=== PATIENT | female | born 1965 | race Caucasian/White ===

== ENCOUNTER → 2016-11-18 | Day surgery (SDC) | payer OTHER ==
[~2016-11-18] VITALS: Ht 157.5 cm; Wt 134.3 kg
[~2016-11-18] MED LIST: ACET65TA; ALLE25CA; ESTROGEN; LIOT25TA2 PO; LR 1,000 ML IV SCH; MAGN500T5 PO; MIDAZOLAM INJ 2 MG/2 ML VIAL (J2250) As Ordered ONE; NALT50TA4 PO; NATURE THYROID PO; PRED10TA2; PROG100C PO; PROPOFOL 200 MG/20 ML VIAL As Ordered ONE; SEVOFLURANE INHAL SOLN 250 ML BTL As Ordered ONE; TESTPOW5 PO; THYR; [UNRECOGNIZED DRUG - OTHER]; [UNRECOGNIZED DRUG - OTHER]; diphenhydrAMINE INJ 50MG/ML VIAL (J1200) As Ordered ONE
--- NOTE | 2016-11-18 08:07 | ROOR ---
Patient Name: Brie Marrero Procedure Date: 11/18/2016 6:33 AM Date of : 1965 Age: 51 Gender: Female Note Status: Finalized Procedure: Colonoscopy to Cecum Indications: Colon cancer screening in patient at increased risk: Colorectal cancer in mother, Incidental - Change in bowel habits Providers: Faisal Francis MD Referring MD: REYNALDO DONOVAN DO Requesting Provider: Medicines: Monitored Anesthesia Care Complications: No immediate complications. Procedure: Pre-Anesthesia Assessment: - The heart rate, respiratory rate, oxygen saturations, blood pressure, adequacy of pulmonary ventilation, and response to care were monitored throughout the procedure. The Colonoscope was introduced through the anus and advanced to the cecum, identified by appendiceal orifice and ileocecal valve. The colonoscopy was performed without difficulty. The patient tolerated the procedure well. The quality of the bowel preparation was excellent. Findings: The perianal and digital rectal examinations were normal. No other significant abnormalities were identified in a careful examination of the remainder of the colon. The exam was otherwise without abnormality on direct and retroflexion views. Impression: - The examination was otherwise normal on direct and retroflexion views. - No specimens collected. - The exam was otherwise normal to the cecum. Recommendation: - Patient has a contact number available for emergencies. The signs and symptoms of potential delayed complications were discussed with the patient. Return to normal activities tomorrow. Written discharge instructions were provided to the patient. - High fiber diet. - Discharge patient to home. - Continue present medications. - Repeat colonoscopy in 5 years for screening purposes. - Return to referring physician. - The findings and recommendations were discussed with the patient's family. Faisal Francis MD Faisal Francis MD 11/18/2016 8:07:28 AM This report has been signed electronically. Number of Addenda: 0 Note Initiated On: 11/18/2016 6:33 AM Estimated Blood Loss: Estimated blood loss: none.
--- NOTE | 2016-11-18 08:11 | ROOR ---
Patient Name: Brie Marrero Procedure Date: 11/18/2016 7:54 AM Date of : 1965 Age: 51 Gender: Female Note Status: Finalized Procedure: Upper GI endoscopy + Small Bowel Biopsy(SBB) Indications: Functional Dyspepsia, Exclusion of celiac disease, Abdominal distention Providers: Faisal Francis MD Referring MD: REYNALDO DONOVAN DO Requesting Provider: Medicines: Monitored Anesthesia Care Complications: No immediate complications. Procedure: Pre-Anesthesia Assessment: - The heart rate, respiratory rate, oxygen saturations, blood pressure, adequacy of pulmonary ventilation, and response to care were monitored throughout the procedure. The Endoscope was introduced through the mouth, and advanced to the second part of duodenum. The upper GI endoscopy was accomplished without difficulty. The patient tolerated the procedure well. Findings: The Z-line was regular and was found 40 cm from the incisors. No other significant abnormalities were identified in a careful examination of the stomach. The exam of the duodenum was otherwise normal. Biopsies for histology were taken with a cold forceps in the first portion of the duodenum for evaluation of celiac disease. The exam was otherwise without abnormality. Impression: - Z-line regular, 40 cm from the incisors. - The examination was otherwise normal. - Biopsies were taken with a cold forceps for evaluation of celiac disease. - The examination was otherwise normal. Recommendation: - Patient has a contact number available for emergencies. The signs and symptoms of potential delayed complications were discussed with the patient. Return to normal activities tomorrow. Written discharge instructions were provided to the patient. - High fiber diet. - Discharge patient to home. - Continue present medications. - Telephone GI clinic for pathology results in 1 week. - Check Portal Online for Path Results.([email or web address] - The findings and recommendations were discussed with the patient's family. Faisal Francis MD Faisal Francis MD 11/18/2016 8:11:23 AM This report has been signed electronically. Number of Addenda: 0 Note Initiated On: 11/18/2016 7:54 AM Estimated Blood Loss: Estimated blood loss: none.
[2016-11-18 09:30] VITALS: BP 153/94
== END | disposition home or self-care (01) ==
LOC: M SDC 06:12
PROVIDERS: ATTEND Internal Medicine Gastroenterology
DX: Z12.11 Encounter for screening for malignant neoplasm of colon (principal); Z80.0 Family history of malignant neoplasm of digestive organs; K30 Functional dyspepsia; R14.0 Abdominal distension (gaseous); E03.9 Hypothyroidism, unspecified; G47.30 Sleep apnea, unspecified; Z91.040 Latex allergy status; E66.01 Morbid (severe) obesity due to excess calories; Z79.899 Other long term (current) drug therapy; Z88.0 Allergy status to penicillin; Z88.2 Allergy status to sulfonamides; Z88.8 Allergy status to other drugs, medicaments and biological substances
CPT/HCPCS: 43239; 45378; 88305; J1200; J2250

== ENCOUNTER → 2016-12-23 | Outpatient (CLI) | payer OTHER ==
[~2016-12-23] MED LIST changes: -LR 1,000 ML IV SCH; -MIDAZOLAM INJ 2 MG/2 ML VIAL (J2250) As Ordered ONE; -PROPOFOL 200 MG/20 ML VIAL As Ordered ONE; -SEVOFLURANE INHAL SOLN 250 ML BTL As Ordered ONE; -diphenhydrAMINE INJ 50MG/ML VIAL (J1200) As Ordered ONE
--- NOTE | 2016-12-23 22:33 | REP ---
Clinical: Trauma. Sprain. Technique: AP, lateral, bilateral oblique views of the right ankle. Findings: Lateral soft tissue swelling consistent with inversion injury. No acute fracture dislocation. Ankle mortise intact. Degenerative changes to the midfoot noted. Lateral view demonstrates large calcaneal heal spur. Impression: Lateral soft tissue swelling. Age-related degenerative changes and calcaneal heal spur. No obvious acute fracture or dislocation. Signed by Cj Lucio MD 12/23/2016 10:24 P
--- NOTE | 2016-12-23 22:34 | REP ---
Clinical: Sprain. Technique: AP, lateral, bilateral oblique views of the right foot. Findings: Ankle and midfoot swelling suggested. Degenerative changes to the mid and hind foot noted. Large calcaneal heal spur identified on lateral radiograph. No acute fracture dislocation appreciated. Impression: Swelling. Degenerative changes to the mid and hind foot. No acute fracture dislocation. Signed by Cj Lucio MD 12/23/2016 10:25 P
== END ==
LOC: M WUC 14:58
PROVIDERS: ATTEND Physician Assistant
DX: S93.421A Sprain of deltoid ligament of right ankle, initial encounter (principal); M79.671 Pain in right foot; X58.XXXA Exposure to other specified factors, initial encounter; Y93.9 Activity, unspecified; Y92.9 Unspecified place or not applicable; Y99.8 Other external cause status; M77.31 Calcaneal spur, right foot

== ENCOUNTER → 2017-02-18 | Outpatient (CLI) | payer OTHER ==
[~2017-02-18] MED LIST changes: +HYDR1CRE TOP
[2017-02-18 17:43] LABS: ALBUMIN 3.5 GM/DL (3.2-5.2); ALBUMIN/GLOBULIN RATIO 1.03 (1.00-1.93); ALKALINE PHOSPHATASE 58 U/L (45-117); ALT/SGPT 37 U/L (12-78); ANION GAP 9 MEQ/L (8-16); AST/SGOT 26 U/L (15-37); BILIRUBIN,TOTAL 0.5 MG/DL (0.2-1.0); BLOOD UREA NITROGEN 10 MG/DL (7-18); CALCIUM LEVEL 8.9 MG/DL (8.5-10.1); CARBON DIOXIDE LEVEL 28 MEQ/L (21-32); CHLORIDE LEVEL 101 MEQ/L (98-107); CREATININE FOR GFR 0.67 MG/DL (0.55-1.02); FERRITIN 376 NG/ML (8-252); GLOMERULAR FILTRATION RATE > 60.0 (>51); GLUCOSE, FASTING 82 MG/DL (70-105); POTASSIUM SERUM 4.5 MEQ/L (3.5-5.1); SODIUM LEVEL 138 MEQ/L (136-145); THYROXINE (T4) 6.2 UG/DL (4.5-12.0); TOTAL PROTEIN 6.9 GM/DL (6.4-8.2)
[2017-02-18 17:46] LABS: ESTRADIOL 50.2 PG/ML; PROGESTERONE 2.9 NG/ML
[2017-02-18 17:47] LABS: VITAMIN B12 LEVEL 353 PG/ML
[2017-02-18 17:49] LABS: BASO % 0.4 % (0.0-1.0); EOS # 0.2 K/mm3 (0.0-0.50); EOS % 3.1 % (0.0-3.0); LARGE UNSTAINED CELL # 0.1 K/mm3 (0.0-0.4); LARGE UNSTAINED CELL % 1.3 % (0.0-4.0); LYMPH # 2.3 K/mm3 (1.5-4.5); MEAN CORPUSCULAR HEMOGLOBIN 30.2 pg (27.0-33.0); MEAN CORPUSCULAR HGB CONC 34.5 g/dl (32.0-36.5); MEAN CORPUSCULAR VOLUME 87.6 fl (80.0-96.0); MONO # 0.3 K/mm3 (0.0-0.8); MONO % 4.3 % (0.0-5.0); NEUTROPHILS # 3.4 K/mm3 (1.8-7.7); NEUTROPHILS % 54.9 % (36.0-66.0); PLATELET COUNT, AUTOMATED 199 k/mm3 (150-450); RED CELL DISTRIBUTION WIDTH 14.1 % (11.5-14.5); WHITE BLOOD COUNT 6.1 K/mm3 (4.0-10.0)
[2017-02-24 00:07] LABS: LEPTIN 56.7 ng/mL (.)
== END ==
LOC: M WUC 11:41
PROVIDERS: ATTEND Physician Assistant
DX: E66.3 Overweight (principal); E63.9 Nutritional deficiency, unspecified; E03.9 Hypothyroidism, unspecified; N95.1 Menopausal and female climacteric states; E27.40 Unspecified adrenocortical insufficiency

== ENCOUNTER 2017-02-27 15:42 | Emergency (ER) | payer OTHER ==
[~2017-02-27] VITALS: Ht 157.5 cm; Wt 133.6 kg
[~2017-02-27 15:42] MED LIST changes: -HYDR1CRE TOP
[2017-02-27] MEDS ORDERED: HYDR1CRE TOP (16:01)
[2017-02-27] MEDS ORDERED: ONDANSETRON 4MG/2ML VIAL (J2405) IV ONE (18:15)
[2017-02-27] MEDS ORDERED: KETOROLAC 30 MG/ML VIAL (J1885) IV ONE (18:15)
[2017-02-27] MEDS ORDERED: diphenhydrAMINE INJ 50MG/ML VIAL (J1200) IV ONE (18:30)
[2017-02-27 18:38] LABS: BASO % 0.4 % (0.0-1.0); EOS # 0.2 K/mm3 (0.0-0.50); EOS % 2.5 % (0.0-3.0); LARGE UNSTAINED CELL # 0.1 K/mm3 (0.0-0.4); LARGE UNSTAINED CELL % 1.3 % (0.0-4.0); LYMPH # 2.3 K/mm3 (1.5-4.5); LYMPH % 33.1 % (24.0-44.0); MEAN CORPUSCULAR HEMOGLOBIN 30.2 pg (27.0-33.0); MEAN CORPUSCULAR HGB CONC 34.6 g/dl (32.0-36.5); MEAN CORPUSCULAR VOLUME 87.1 fl (80.0-96.0); MONO # 0.3 K/mm3 (0.0-0.8); MONO % 4.7 % (0.0-5.0); NEUTROPHILS # 3.9 K/mm3 (1.8-7.7); PLATELET COUNT, AUTOMATED 202 k/mm3 (150-450); RED CELL DISTRIBUTION WIDTH 14.3 % (11.5-14.5); WHITE BLOOD COUNT 6.8 K/mm3 (4.0-10.0)
[2017-02-27] MEDS ORDERED: GASTROGRAFIN SOLUTION 30ML (Q9963) As Ordered ONE (18:44)
[2017-02-27 18:56] LABS: ALBUMIN 3.5 GM/DL (3.2-5.2); ALBUMIN/GLOBULIN RATIO 0.97 (1.00-1.93); ALKALINE PHOSPHATASE 54 U/L (45-117); ALT/SGPT 38 U/L (12-78); AMYLASE 30 U/L (25-115); ANION GAP 11 MEQ/L (8-16); AST/SGOT 20 U/L (15-37); BILIRUBIN,DIRECT 0.2 MG/DL (0.0-0.2); BILIRUBIN,TOTAL 0.7 MG/DL (0.2-1.0); BLOOD UREA NITROGEN 10 MG/DL (7-18); CARBON DIOXIDE LEVEL 27 MEQ/L (21-32); CHLORIDE LEVEL 106 MEQ/L (98-107); CREATININE FOR GFR 0.68 MG/DL (0.55-1.02); GLOMERULAR FILTRATION RATE > 60.0 (>51); GLUCOSE, FASTING 85 MG/DL (70-105); POTASSIUM SERUM 3.8 MEQ/L (3.5-5.1); SODIUM LEVEL 144 MEQ/L (136-145); TOTAL PROTEIN 7.1 GM/DL (6.4-8.2)
[2017-02-27] MEDS ORDERED: GASTROGRAFIN SOLUTION 30ML (Q9963) PO ONE ×2 (19:00)
--- NOTE | 2017-02-27 21:30 | REPUSA ---
CLINICAL HISTORY: Abdominal pain. TECHNIQUE: Multiple axial, sagittal and coronal CT images were obtained through the abdomen and pelvi s after administration of oral but not IV contrast material. COMMENTS: The liver is of uniform decreased attenuation without mass or defect compatible fatty infiltration. T here is no intra or extrahepatic biliary ductal dilatation. The spleen is enlarged, 15 cm. the gallb ladder is within normal limits. The pancreas is of normal contour and attenuation characteristics. Th ere is no evidence of adrenal mass. The kidneys are normal in size, shape and configuration. No renal or ureteral calculi are identified. There is no hydroureter or hydronephrosis. Small fat-containing umbilical hernia is seen. There is no evidence for appendicitis. There is no bowel wall thickening. No evidence for small or la rge bowel obstruction. There is no evidence of abdominal ascites or lymphadenopathy. There is no evidence of intrinsic or extrinsic bladder mass. There is no pelvic ascites or lymphadeno dalia. Status post complete hysterectomy. Images of the lung bases show no evidence of pleural or parenchymal mass. There are no pleural effusi ons. The bony structures are free of lytic or blastic lesions. Multilevel degenerative changes are seen in volving the thoracolumbar spine. IMPRESSION: No acute abdominal pelvic pathology. Fatty liver. Thank you for your kind referral of this patient.
[2017-02-27 22:50] VITALS: BP 149/64
== END 2017-02-27 22:52 | disposition home or self-care (01) ==
LOC: M ED 15:42
DX: R10.9 Unspecified abdominal pain (principal); R11.0 Nausea; N83.209 Unspecified ovarian cyst, unspecified side; F41.9 Anxiety disorder, unspecified; J45.909 Unspecified asthma, uncomplicated; E27.40 Unspecified adrenocortical insufficiency; Z88.0 Allergy status to penicillin; Z88.1 Allergy status to other antibiotic agents; Z88.5 Allergy status to narcotic agent; Z88.8 Allergy status to other drugs, medicaments and biological substances; Z91.040 Latex allergy status; Z91.02 Food additives allergy status; Z79.899 Other long term (current) drug therapy
CPT/HCPCS: 36415; 74176; 80048; 80076; 81001; 82150; 83605; 83690; 85025; 86140; 96374; 99283; J1200; Q9963

== ENCOUNTER → 2017-03-04 | Outpatient (CLI) | payer OTHER ==
[~2017-03-04] MED LIST changes: +HYDR1CRE TOP
--- NOTE | 2017-03-04 13:43 | REP ---
MRI RIGHT ANKLE: TECHNIQUE: Sagittal proton density, STIR, axial proton density fat sat, T1, coronal proton density, STIR. The Achilles, anterior tibial, posterior tibial, flexor hallucis longus, flexor digitorum longus and peroneal tendons are all intact with no significant tenosynovitis. The anterior and posterior talofibular, calcaneofibular and deltoid ligaments appear intact. There is no abnormal signal in the plantar fascia, with no plantar fasciitis. Plantar tendon is intact. There is a small joint effusion. There is some mild scattered subcutaneous soft tissue edema in the superficial soft tissues. Focal subchondral marrow and cystic change in the medial talar dome is present with some overlying cartilaginous thinning having the appearance of a stage I osteochondral lesion. This measures about 1.3 x 0.8 cm. There is subtalar arthritic change with subchondral marrow edema and cystic change in the superior aspect of the calcaneus and inferior aspect of the talus along the talocalcaneal joint. There is edematous change and cystic change also seen in the navicular secondary to arthritic change of the adjacent intertarsal joints. There is mild subchondral cystic change in the lateral cuneiform bone. IMPRESSION: No evidence of tendon or ligament tear. Scattered arthritic changes as above. Subchondral marrow edema and cystic change in the medial talar dome may represent a stage I osteochondral lesion. There is subtalar arthritic change with associated subchondral marrow edema and cystic change. There is also arthritic change in the intertarsal joints surrounding the navicular bone. Small joint effusion. Signed by Massimo Estes MD 03/04/2017 05:04 P
== END ==
LOC: M RAD 10:31
PROVIDERS: ATTEND Podiatrist
DX: S96.091 Other injury of muscle and tendon of long flexor muscle of toe at ankle and foot level, right foot (principal); X58.XXXA Exposure to other specified factors, initial encounter; Y93.9 Activity, unspecified; Y92.9 Unspecified place or not applicable; Y99.8 Other external cause status

== ENCOUNTER → 2017-06-12 | Outpatient (REF) | payer OTHER | LOC: M LAB REF 09:54 | PROVIDERS: ATTEND Physician Assistant Medical | DX: J02.9 Acute pharyngitis, unspecified (principal) ==

== ENCOUNTER 2017-07-18 08:49 | Emergency (ER) | payer OTHER ==
[~2017-07-18] VITALS: Ht 157.5 cm; Wt 134.6 kg
--- NOTE | 2017-07-18 10:08 | REP ---
Clinical: Pain. Trauma. Technique: AP, lateral, bilateral oblique views of the left knee. Findings: Mild arthritic changes include increased sclerosis to the tibial plateau with medial joint space narrowing and subtle cortical irregularity/marginal spurring. No acute fracture dislocation. No effusion. Impression: Mild arthritic changes. No acute fracture dislocation. Signed by Cj Lucio MD 07/18/2017 10:00 A
--- NOTE | 2017-07-18 10:10 | REP ---
Clinical: Pain. Trauma. Technique: Caudal angled, cephalic angled, lateral views of the sacrum and coccyx. Findings: Sacrum and coccyx are intact. Bilateral sacroiliac joints are normal. No evidence for acute fracture or subluxation. Impression: Normal sacrum and coccyx radiograph series. Signed by Cj Lucio MD 07/18/2017 10:02 A
[2017-07-18 11:25] VITALS: BP 147/75
== END 2017-07-18 11:26 | disposition home or self-care (01) ==
LOC: M ED 08:49
DX: M17.12 Unilateral primary osteoarthritis, left knee (principal); M53.3 Sacrococcygeal disorders, not elsewhere classified; R03.0 Elevated blood-pressure reading, without diagnosis of hypertension

== ENCOUNTER → 2017-07-18 | Outpatient (CLI) | payer OTHER | LOC: M RAD 11:23 | PROVIDERS: ATTEND Family Medicine | DX: M25.562 Pain in left knee (principal); Z53.9 Procedure and treatment not carried out, unspecified reason ==

== ENCOUNTER → 2018-11-05 | Outpatient (REF) | payer OTHER ==
[~2018-11-05] MED LIST changes: +ARMO1TAB; -HYDR1CRE TOP; +HYDR1CRE30 TOP; -THYR
[2018-11-05 13:24] LABS: HEMATOCRIT 45.4 % (36.0-47.0); HEMOGLOBIN 15.1 g/dl (12.0-15.5); MEAN CORPUSCULAR HEMOGLOBIN 29.2 pg (27.0-33.0); MEAN CORPUSCULAR HGB CONC 33.3 g/dl (32.0-36.5); MEAN CORPUSCULAR VOLUME 87.8 fl (80.0-96.0); PLATELET COUNT, AUTOMATED 215 10^3/uL (150-450); RED BLOOD COUNT 5.17 10^6/uL (4.00-5.40); WHITE BLOOD COUNT 5.1 10^3/uL (4.0-10.0)
[2018-11-05 13:35] LABS: ALBUMIN 3.5 GM/DL (3.2-5.2); ALT/SGPT 34 U/L (12-78); BILIRUBIN,TOTAL 0.6 MG/DL (0.2-1.0); BLOOD UREA NITROGEN 15 MG/DL (7-18); CALCIUM LEVEL 8.6 MG/DL (8.5-10.1); CARBON DIOXIDE LEVEL 28 MEQ/L (21-32); CHLORIDE LEVEL 108 MEQ/L (98-107); CREATININE FOR GFR 0.73 MG/DL (0.55-1.30); FERRITIN 149 NG/ML (8-252); GLOMERULAR FILTRATION RATE > 60.0 (>51); GLUCOSE, FASTING 100 MG/DL (70-100); POTASSIUM SERUM 4.4 MEQ/L (3.5-5.1); SODIUM LEVEL 142 MEQ/L (136-145); TOTAL PROTEIN 6.8 GM/DL (6.4-8.2)
[2018-11-05 13:40] LABS: TOTAL 25(OH) VITAMIN D 19.8 NG/ML (30.0-100.0)
[2018-11-05 13:41] LABS: CORTISOL AM 6.7 UG/DL (4.3-22.4); VITAMIN B12 LEVEL 239 PG/ML (247-911)
[2018-11-05 15:24] LABS: FREE T3 5.6 PG/ML (2.2-4.0)
[2018-11-10 00:59] LABS: INSULIN LEVEL 26.1 uIU/mL (2.6-24.9); IODINE URINE RANDOM 207.9 ug/L (28.0-544.0); VITAMIN C, ASCORBIC ACID 0.8 mg/dL (0.2-2.0)
== END ==
LOC: M LAB REF 12:21
PROVIDERS: ATTEND Physician Assistant
DX: E66.3 Overweight (principal); E63.9 Nutritional deficiency, unspecified; E03.9 Hypothyroidism, unspecified; E27.40 Unspecified adrenocortical insufficiency

== ENCOUNTER → 2019-02-03 | Outpatient (REF) | payer OTHER ==
[~2019-02-03] MED LIST changes: -PROG100C PO; +PROG1CAP8 PO
[2019-02-03 14:49] LABS: CHOLESTEROL RISK RATIO 2.571 (<5)
== END ==
LOC: M SFHCADAM 10:18
PROVIDERS: ATTEND Physician Assistant Medical
DX: E78.2 Mixed hyperlipidemia (principal)

== ENCOUNTER → 2019-02-16 | Outpatient (CLI) | payer OTHER ==
--- NOTE | 2019-02-23 08:55 | SLEEPCENT ---
DATE OF PROCEDURE: 02/16/2019 02/16/1990 ORDERING PROVIDER: CLINTON Pulido, copy to Heena Baptiste PA-C INTERPRETATION: Nocturnal polysomnography was performed for re-titration of pressure therapy in this patient with obstructive sleep apnea syndrome. Apnea-hypopnea index 14.6. For testing the patient was fit with a ResMed Mirage FX nasal mask of standard size, 6 cm of water pressure applied to the circuit and the lights were extinguished. 8 hours and 17 minutes of data were reviewed. There were 411 minutes of sleep identified. Sleep latency was prolonged at 47.5 minutes. Rapid eye movement (REM) latency prolonged at 106.5 minutes. Sleep architecture was good with three REM cycles. Overall sleep 83.8%. The patient's electrocardiogram showed a sinus rhythm with an average heart rate of 60 beats per minute. Occasional preventricular contractions (PVCs) were noted. EEG showed reasonably normal waveforms for awake and sleep stages. Respiratory events were reasonably palliated with CPAP of pressure of +10 with minimal activity in the limb leads and remaining measures of sleep physiology were normal. IMPRESSION: Obstructive sleep apnea syndrome (G47.33) RECOMMENDATIONS: Nightly use of pressure therapy at 10 cm of water.
== END ==
LOC: M SLEEP 19:28
PROVIDERS: ATTEND Nurse Practitioner Family
DX: G47.33 Obstructive sleep apnea (adult) (pediatric) (principal)

== ENCOUNTER → 2019-06-21 | Outpatient (REF) | payer OTHER ==
[~2019-06-21] MED LIST changes: -LIOT25TA2 PO; +LIOT25TA8 PO
== END ==
LOC: M LAB REF 18:35
PROVIDERS: ATTEND Dermatology
DX: L83 Acanthosis nigricans (principal); L85.9 Epidermal thickening, unspecified
CPT/HCPCS: 11102; 11103; 88305; G0463

== ENCOUNTER → 2019-07-01 | Outpatient (CLI) | payer OTHER ==
--- NOTE | 2019-07-01 14:59 | REP ---
Clinical: Chronic palpable mass. Technique: Real time velasquez scale ultrasound examination. Findings: Ultrasound examination at the site of palpable mass in the left upper quadrant demonstrates a 4.3 x 3.0 x 5.8 cm well-circumscribed ovoid fatty lesion most compatible with lipoma. Impression: Lipoma. Electronically Signed by Cj Lucio MD 07/01/2019 02:50 P
== END ==
LOC: M RAD 14:18
PROVIDERS: ATTEND Dermatology
DX: D17.1 Benign lipomatous neoplasm of skin and subcutaneous tissue of trunk (principal)

== ENCOUNTER → 2019-07-06 | Outpatient (REF) | payer OTHER | LOC: M LAB REF 18:22 | PROVIDERS: ATTEND Dermatology | DX: D23.4 Other benign neoplasm of skin of scalp and neck (principal); D23.5 Other benign neoplasm of skin of trunk ==

== ENCOUNTER → 2020-05-01 | Outpatient (REF) | payer OTHER | LOC: M LAB REF 08:20 | PROVIDERS: ATTEND Dermatology | DX: D48.5 Neoplasm of uncertain behavior of skin (principal) ==

== ENCOUNTER → 2020-10-23 | Outpatient (CLI) | payer OTHER ==
[2020-10-24 12:08] LABS: ANTINUCLEAR ANTIBODIES DIRECT Negative (Negative)
== END ==
LOC: M PLALAB 10:14
PROVIDERS: ATTEND Psychiatry & Neurology Neurology
DX: R51.9 Headache, unspecified (principal)

== ENCOUNTER → 2020-11-09 | Outpatient (CLI) | payer OTHER ==
--- NOTE | 2020-11-10 09:26 | REP ---
INDICATION: BILATERAL PRIMARY OSTEOARTHRITIS OF KNEE. Left knee MRI exam. COMPARISON: Comparison MRI left knee study July 28, 2017. Comparison left knee radiographs July 18, 2017.. TECHNIQUE: Axial, coronal, and sagittal imaging planes are utilized. T1, proton density and T2 weighted scans are included with without fat saturation in the usual fashion. FINDINGS: There is an area of marrow edema in the medial tibial plateau and to a lesser extent in the medial femoral condyle. Cortical and medullary bone signal intensity are otherwise normal. There is periarticular soft tissue edema anterior to the patellar tendon. Patellar tendon appears intact. Quadriceps tendon is unremarkable. There is evidence of a chronic tear of the anterior cruciate ligament with slight buckling of the posterior cruciate and some anterior tibial subluxation. There is cystic change at the distal insertion of the ACL. The ACL now appears discontinuous. PCL is intact in appearance. There is no evidence to suggest medial or lateral collateral ligament disruption. There is a lateral plica and a moderate to large suprapatellar bursal joint effusion is seen. There are advanced chondromalacia changes in the central patella with full-thickness are cartilage fissuring. Femoral trochlear articular cartilage shows mild chondromalacia changes. There are severe chondromalacia changes in the medial and lateral tibiofemoral compartments with essentially full-thickness cartilage loss medially. These changes are are more pronounced than on the 2018 study. High the marrow edema pattern in the medial tibial plateau is new. There is a medial extrusion of the body of the medial meniscus and a degenerative tear is seen in is posterior horn. The lateral meniscus appears to remain intact. There is a large well established spurring at the medial and to a lesser extent lateral compartment the joint, more pronounced than previously. IMPRESSION: Progressive severe osteoarthritis medial tibiofemoral compartment. Joint effusion. Severe chondromalacia as above. Posterior horn medial meniscal tear. Evidence of complete old tear of the ACL. <Electronically signed by Abimael Lazaro > 11/10/20 [id number]
--- NOTE | 2020-11-10 10:00 | REP ---
INDICATION: BILATERAL PRIMARY OSTEOARTHRITIS OF KNEE. COMPARISON: Comparison MRI study of the right knee is dated 09 November 2012.. TECHNIQUE: Axial, coronal, and sagittal imaging planes utilized. T1, proton density and T2 weighted scans are included with without fat saturation in the usual fashion. FINDINGS: There is evidence of laxity of the anterior cruciate ligament although no discontinuity is seen. The knee is slightly hyper extended. This is unchanged. Patellar and quadriceps tendons appear intact. Posterior cruciate ligament has an intact appearance. There is no evidence of medial or lateral collateral ligament disruption. A small to moderate joint effusion is evident. No Ireland's cyst is seen. There is subcortical cyst formation beneath the tibial spines. This is a new finding. It measures 1.4 cm in greatest diameter. No lateral meniscal tear is appreciated. There is a complex tear in the posterior horn and posterior body of the medial meniscus. There is slight medial extrusion of the body of the medial meniscus without or bowing of the MCL. Chondromalacia is seen on both sides of the medial tibiofemoral compartment moderate in degree. Study is otherwise unremarkable. IMPRESSION: Complex tear posterior body and posterior horn medial meniscus more prominent than on the 2013 study. Chondromalacia in the medial compartment of the tibiofemoral articulation also more pronounced. Joint effusion. Evidence of laxity of the ACL with hyperextension. <Electronically signed by Abimael Lazaro > 11/10/20 [id number]
== END ==
LOC: M RAD 16:42
PROVIDERS: ATTEND Physician Assistant
DX: M17.0 Bilateral primary osteoarthritis of knee (principal); M22.41 Chondromalacia patellae, right knee; M25.461 Effusion, right knee; M23.221 Derangement of posterior horn of medial meniscus due to old tear or injury, right knee; M22.42 Chondromalacia patellae, left knee; M23.222 Derangement of posterior horn of medial meniscus due to old tear or injury, left knee; M25.462 Effusion, left knee

== ENCOUNTER → 2021-09-12 | Outpatient (REF) | payer OTHER ==
[2021-09-12 12:44] LABS: BASO % 0.3 % (0.0-1.0); EOS # 0.2 10^3/uL (0.0-0.5); EOS % 3.1 % (0.0-3.0); HEMATOCRIT 48.6 % (36.0-47.0); HEMOGLOBIN 16.3 g/dl (12.0-15.5); LYMPH # 2.1 10^3/uL (1.5-5.0); LYMPH % 29.4 % (24.0-44.0); MEAN CORPUSCULAR HEMOGLOBIN 29.1 pg (27.0-33.0); MEAN CORPUSCULAR HGB CONC 33.5 g/dl (32.0-36.5); MEAN CORPUSCULAR VOLUME 86.6 fl (80.0-96.0); MONO # 0.5 10^3/uL (0.0-0.8); MONO % 6.9 % (2.0-8.0); NEUTROPHILS # 4.3 10^3/uL (1.5-8.5); NEUTROPHILS % 59.9 % (36.0-66.0); PLATELET COUNT, AUTOMATED 230 10^3/uL (150-450); RED BLOOD COUNT 5.61 10^6/uL (4.00-5.40); WHITE BLOOD COUNT 7.2 10^3/uL (4.0-10.0)
[2021-09-12 13:13] LABS: ALBUMIN 3.6 GM/DL (3.2-5.2); ALT/SGPT 39 U/L (12-78); BILIRUBIN,TOTAL 0.7 MG/DL (0.2-1.0); BLOOD UREA NITROGEN 12 MG/DL (7-18); CALCIUM LEVEL 9.4 MG/DL (8.5-10.1); CARBON DIOXIDE LEVEL 29 MEQ/L (21-32); CHLORIDE LEVEL 107 MEQ/L (98-107); CHOLESTEROL LEVEL 165 MG/DL (<200); CHOLESTEROL RISK RATIO 2.704 (<5); CREATININE FOR GFR 0.82 MG/DL (0.55-1.30); GLOMERULAR FILTRATION RATE > 60.0 (>51); GLUCOSE, FASTING 94 MG/DL (70-100); HDL CHOLESTEROL 61 MG/DL (>40); LDL CHOLESTEROL 85 MG/DL (<100); NON-HDL-C 104 MG/DL; POTASSIUM SERUM 4.3 MEQ/L (3.5-5.1); SODIUM LEVEL 142 MEQ/L (136-145); THYROID STIMULATING HORMONE < 0.005 uIU/ML (0.358-3.740); TRIGLYCERIDES LEVEL 93 MG/DL (<150)
[2021-09-12 15:48] LABS: HEMOGLOBIN A1c 4.9 %
== END ==
LOC: M SFHCADAM 11:03
PROVIDERS: ATTEND Physician Assistant Medical
DX: E03.9 Hypothyroidism, unspecified (principal); E78.2 Mixed hyperlipidemia; E66.01 Morbid (severe) obesity due to excess calories

== ENCOUNTER → 2021-09-18 | Outpatient (CLI) | payer OTHER | LOC: M RAD 08:08 | PROVIDERS: ATTEND Physician Assistant Medical | DX: Z13.818 Encounter for screening for other digestive system disorders (principal); Z83.79 Family history of other diseases of the digestive system; R14.0 Abdominal distension (gaseous); K76.89 Other specified diseases of liver ==

== ENCOUNTER → 2021-11-26 | Outpatient (REF) | payer OTHER ==
[2021-11-26 14:02] LABS: APPEARANCE, URINE HAZY (CLEAR); BACTERIA, URINE AUTO NEGATIVE (NEGATIVE); BILIRUBIN, URINE AUTO NEGATIVE (NEGATIVE); BLOOD, URINE BLOOD NEGATIVE (NEGATIVE); COLOR, URINE YELLOW (YELLOW); GLUCOSE, URINE (UA) AUTO NEGATIVE (NEGATIVE); KETONE, URINE AUTO NEGATIVE (NEGATIVE); LEUKOCYTE ESTERASE, URINE AUTO NEGATIVE (NEGATIVE); MUCUS, URINE SMALL (NEGATIVE); NITRITE, URINE AUTO NEGATIVE (NEGATIVE); PROTEIN, URINE AUTO NEGATIVE (NEGATIVE); RBC, URINE AUTO 0 /HPF (0-3); SPECIFIC GRAVITY URINE AUTO 1.015 (1.002-1.035); SQUAMOUS EPITHELIAL CELL UR AU 0 /HPF (0-6); UROBILINOGEN, URINE AUTO 0.2 mg/dL (0.0-2.0); WBC, URINE AUTO 1 /HPF (0-3)
== END ==
LOC: M SFHCADAM 12:54
PROVIDERS: ATTEND Physician Assistant Medical
DX: R35.0 Frequency of micturition (principal)

== ENCOUNTER → 2022-02-28 | Outpatient (CLI) | payer OTHER | LOC: M PLARAD 13:39 | PROVIDERS: ATTEND Physician Assistant | DX: S93.692A Other sprain of left foot, initial encounter (principal); M25.772 Osteophyte, left ankle; M77.32 Calcaneal spur, left foot; M25.472 Effusion, left ankle; X58.XXXA Exposure to other specified factors, initial encounter; Y92.9 Unspecified place or not applicable; Y93.9 Activity, unspecified; Y99.9 Unspecified external cause status ==

== ENCOUNTER 2022-04-25 15:41 | Emergency (ER) | payer OTHER ==
[~2022-04-25] VITALS: Ht 157.5 cm; Wt 133.6 kg
[2022-04-25 18:27] LABS: BASO % 0.4 % (0.0-1.0); EOS # 0.1 10^3/uL (0.0-0.5); EOS % 1.6 % (0.0-3.0); HEMATOCRIT 45.3 % (36.0-47.0); HEMOGLOBIN 15.2 g/dl (12.0-15.5); LYMPH % 38.4 % (24.0-44.0); MEAN CORPUSCULAR HEMOGLOBIN 29.7 pg (27.0-33.0); MEAN CORPUSCULAR HGB CONC 33.6 g/dl (32.0-36.5); MEAN CORPUSCULAR VOLUME 88.5 fl (80.0-96.0); MONO # 0.5 10^3/uL (0.0-0.8); MONO % 6.8 % (2.0-8.0); NEUTROPHILS # 4.1 10^3/uL (1.5-8.5); NEUTROPHILS % 52.5 % (36.0-66.0); PLATELET COUNT, AUTOMATED 213 10^3/uL (150-450); RED BLOOD COUNT 5.12 10^6/uL (4.00-5.40); WHITE BLOOD COUNT 7.9 10^3/uL (4.0-10.0)
[2022-04-25 18:54] LABS: BLOOD UREA NITROGEN 13 MG/DL (7-18); CARBON DIOXIDE LEVEL 27 MEQ/L (21-32); CHLORIDE LEVEL 108 MEQ/L (98-107); GLOMERULAR FILTRATION RATE > 60.0 (>51); GLUCOSE, FASTING 82 MG/DL (70-100); POTASSIUM SERUM 4.3 MEQ/L (3.5-5.1); SODIUM LEVEL 140 MEQ/L (136-145)
[2022-04-25 19:03] VITALS: BP 166/70
== END 2022-04-25 19:30 | disposition home or self-care (01) ==
LOC: M ED 15:41
DX: I95.1 Orthostatic hypotension (principal); E03.9 Hypothyroidism, unspecified; Z79.890 Hormone replacement therapy; Z79.899 Other long term (current) drug therapy; Z88.0 Allergy status to penicillin; Z88.8 Allergy status to other drugs, medicaments and biological substances; Z88.1 Allergy status to other antibiotic agents; Z88.5 Allergy status to narcotic agent; Z88.2 Allergy status to sulfonamides; Z91.018 Allergy to other foods; Z91.040 Latex allergy status

== ENCOUNTER → 2022-09-29 | Outpatient (CLI) | payer OTHER | LOC: M WHC 12:28 | PROVIDERS: ATTEND Physician Assistant Medical | DX: Z78.0 Asymptomatic menopausal state (principal); M85.851 Other specified disorders of bone density and structure, right thigh; M85.852 Other specified disorders of bone density and structure, left thigh ==

== ENCOUNTER → 2022-10-31 | Outpatient (CLI) | payer OTHER | LOC: M WUC 12:50 | PROVIDERS: ATTEND Physician Assistant | DX: S93.601A Unspecified sprain of right foot, initial encounter (principal); S93.401A Sprain of unspecified ligament of right ankle, initial encounter; M77.31 Calcaneal spur, right foot; X58.XXXA Exposure to other specified factors, initial encounter; Y92.9 Unspecified place or not applicable; Y93.9 Activity, unspecified; Y99.9 Unspecified external cause status ==

== ENCOUNTER → 2022-11-28 | Outpatient (REF) | payer OTHER ==
[~2022-11-28] MED LIST changes: +MAGN500T12 PO
[2022-11-28 13:47] LABS: HEMOGLOBIN 15.5 g/dl (12.0-15.5); MEAN CORPUSCULAR HEMOGLOBIN 29.7 pg (27.0-33.0); PLATELET COUNT, AUTOMATED 226 10^3/uL (150-450); RED BLOOD COUNT 5.22 10^6/uL (4.00-5.40)
[2022-11-28 13:59] LABS: ALBUMIN 3.5 G/DL (3.2-5.2); BILIRUBIN,DIRECT 0.2 MG/DL (<0.4); BILIRUBIN,TOTAL 0.5 MG/DL (0.3-1.2); TOTAL PROTEIN 6.7 G/DL (5.7-8.2)
== END ==
LOC: M LABDRWAD 12:41
PROVIDERS: ATTEND Physician Assistant Medical
DX: K76.0 Fatty (change of) liver, not elsewhere classified (principal); R19.7 Diarrhea, unspecified

== ENCOUNTER → 2022-11-28 | Outpatient (REF) | payer OTHER ==
[2022-11-28 13:48] LABS: BASO # 0.1 10^3/uL (0.0-0.2); BASO % 0.6 % (0.0-1.0); EOS # 0.1 10^3/uL (0.0-0.5); EOS % 1.1 % (0.0-3.0); HEMATOCRIT 46.8 % (36.0-47.0); HEMOGLOBIN 15.5 g/dl (12.0-15.5); LYMPH # 3.2 10^3/uL (1.5-5.0); LYMPH % 41.2 % (24.0-44.0); MEAN CORPUSCULAR HEMOGLOBIN 29.5 pg (27.0-33.0); MEAN CORPUSCULAR HGB CONC 33.1 g/dl (32.0-36.5); MEAN CORPUSCULAR VOLUME 89.1 fl (80.0-96.0); MONO # 0.6 10^3/uL (0.0-0.8); MONO % 7.2 % (2.0-8.0); NEUTROPHILS # 3.9 10^3/uL (1.5-8.5); NEUTROPHILS % 49.8 % (36.0-66.0); PLATELET COUNT, AUTOMATED 225 10^3/uL (150-450); RED BLOOD COUNT 5.25 10^6/uL (4.00-5.40); WHITE BLOOD COUNT 7.9 10^3/uL (4.0-10.0)
[2022-11-28 14:07] LABS: THYROID STIMULATING HORMONE 0.008 uIU/ML (0.55-4.78)
[2022-11-28 14:08] LABS: TOTAL 25(OH) VITAMIN D 27.2 NG/ML (20.0-100.0)
[2022-11-28 14:10] LABS: ALBUMIN 3.3 G/DL (3.2-5.2); ALKALINE PHOSPHATASE 63 U/L (46-116); ALT/SGPT 31 U/L (7.0-40); AST/SGOT 16 U/L (<34); BILIRUBIN,TOTAL 0.5 MG/DL (0.3-1.2); BLOOD UREA NITROGEN 23 MG/DL (9-23); CALCIUM LEVEL 8.8 MG/DL (8.5-10.1); CARBON DIOXIDE LEVEL 28 MMOL/L (20-31); CHLORIDE LEVEL 107 MMOL/L (98-107); CHOLESTEROL LEVEL 139 MG/DL (<200); CHOLESTEROL RISK RATIO 2.22 (<5); CREATININE FOR GFR 0.76 MG/DL (0.55-1.30); GLOMERULAR FILTRATION RATE > 60.0 (>51); GLUCOSE, FASTING 77 MG/DL (60-100); HDL CHOLESTEROL 62.4 MG/DL (>40); LDL CHOLESTEROL 64.6 MG/DL (<100); NON-HDL-C 76.6 MG/DL; POTASSIUM SERUM 4.7 MMOL/L (3.5-5.1); SODIUM LEVEL 141 MMOL/L (136-145); TOTAL PROTEIN 6.3 G/DL (5.7-8.2); TRIGLYCERIDES LEVEL 60 MG/DL (<150)
== END ==
LOC: M SFHCADAM 08:59
PROVIDERS: ATTEND Physician Assistant Medical
DX: E78.2 Mixed hyperlipidemia (principal); E66.01 Morbid (severe) obesity due to excess calories; G47.33 Obstructive sleep apnea (adult) (pediatric); E03.9 Hypothyroidism, unspecified

== ENCOUNTER 2022-12-02 07:27 | Day surgery (SDC) | payer OTHER ==
[~2022-12-02] VITALS: Ht 157.5 cm; Wt 132.0 kg
[~2022-12-02 07:27] MED LIST changes: +NS 1,000 ML IV ONE
[2022-12-02] MEDS ORDERED: propofoL 200 MG/20 ML VIAL As Ordered ONE ×2 (07:56→09:30)
[2022-12-02] MEDS ORDERED: LIDOCAINE 2% 100MG/5ML SDV (FOR ANES.) As Ordered ONE (07:56)
[2022-12-02] MEDS ORDERED: fentaNYL 100 MCG/2 ML INJECTION As Ordered ONE (09:00)
[2022-12-02 10:00] VITALS: BP 180/85
== END 2022-12-02 10:11 | disposition home or self-care (01) ==
LOC: M OPP 07:27
PROVIDERS: ATTEND Internal Medicine Gastroenterology
DX: Z12.11 Encounter for screening for malignant neoplasm of colon (principal); Z80.0 Family history of malignant neoplasm of digestive organs; K63.5 Polyp of colon; K64.8 Other hemorrhoids; R10.13 Epigastric pain; G47.33 Obstructive sleep apnea (adult) (pediatric); Z99.89 Dependence on other enabling machines and devices; Z79.1 Long term (current) use of non-steroidal anti-inflammatories (NSAID); Z79.890 Hormone replacement therapy; Z79.899 Other long term (current) drug therapy; Z88.0 Allergy status to penicillin; Z88.1 Allergy status to other antibiotic agents; Z88.2 Allergy status to sulfonamides; Z88.5 Allergy status to narcotic agent; Z88.8 Allergy status to other drugs, medicaments and biological substances; Z91.011 Allergy to milk products; Z91.018 Allergy to other foods; Z91.040 Latex allergy status
CPT/HCPCS: 43235; 45385; 88305; J3010

== ENCOUNTER → 2022-12-19 | Outpatient (CLI) | payer OTHER ==
[~2022-12-19] MED LIST changes: -NS 1,000 ML IV ONE
== END ==
LOC: M RAD 06:51
PROVIDERS: ATTEND Physician Assistant Medical
DX: R10.10 Upper abdominal pain, unspecified (principal)

== ENCOUNTER → 2023-04-27 | Outpatient (CLI) | payer OTHER ==
[2023-04-27 16:03] LABS: BASO % 0.5 % (0.0-1.0); EOS # 0.3 10^3/uL (0.0-0.5); EOS % 3.2 % (0.0-3.0); HEMATOCRIT 45.2 % (36.0-47.0); HEMOGLOBIN 15.5 g/dl (12.0-15.5); LYMPH # 2.6 10^3/uL (1.5-5.0); LYMPH % 33.6 % (24.0-44.0); MEAN CORPUSCULAR HEMOGLOBIN 30.3 pg (27.0-33.0); MEAN CORPUSCULAR HGB CONC 34.3 g/dl (32.0-36.5); MEAN CORPUSCULAR VOLUME 88.3 fl (80.0-96.0); MONO # 0.5 10^3/uL (0.0-0.8); MONO % 6.4 % (2.0-8.0); NEUTROPHILS # 4.3 10^3/uL (1.5-8.5); NEUTROPHILS % 55.9 % (36.0-66.0); PLATELET COUNT, AUTOMATED 203 10^3/uL (150-450); RED BLOOD COUNT 5.12 10^6/uL (4.00-5.40); WHITE BLOOD COUNT 7.8 10^3/uL (4.0-10.0)
== END ==
LOC: M LAB 15:27
PROVIDERS: ATTEND Physician Assistant
DX: R58 Hemorrhage, not elsewhere classified (principal); R21 Rash and other nonspecific skin eruption; L82.0 Inflamed seborrheic keratosis; R22.9 Localized swelling, mass and lump, unspecified
CPT/HCPCS: 17110; 36415; 85025; G0463

== ENCOUNTER → 2023-05-25 | Outpatient (REF) | payer OTHER | LOC: M LAB REF 15:48 | PROVIDERS: ATTEND Surgery | DX: D17.1 Benign lipomatous neoplasm of skin and subcutaneous tissue of trunk (principal) ==

== ENCOUNTER → 2023-08-26 | Outpatient (REF) | payer OTHER | LOC: M LAB REF 15:45 | PROVIDERS: ATTEND Surgery | DX: D17.9 Benign lipomatous neoplasm, unspecified (principal) ==

== ENCOUNTER → 2023-12-10 | Outpatient (REF) | payer OTHER ==
[2023-12-10 14:26] LABS: BASO % 0.4 % (0.0-1.0); EOS # 0.2 10^3/uL (0.0-0.5); EOS % 2.4 % (0.0-3.0); HEMATOCRIT 46.7 % (36.0-47.0); HEMOGLOBIN 15.6 g/dl (12.0-15.5); LYMPH # 2.6 10^3/uL (1.5-5.0); LYMPH % 38.3 % (24.0-44.0); MEAN CORPUSCULAR HEMOGLOBIN 28.7 pg (27.0-33.0); MEAN CORPUSCULAR HGB CONC 33.4 g/dl (32.0-36.5); MONO # 0.5 10^3/uL (0.0-0.8); MONO % 8.1 % (2.0-8.0); NEUTROPHILS # 3.4 10^3/uL (1.5-8.5); NEUTROPHILS % 50.5 % (36.0-66.0); PLATELET COUNT, AUTOMATED 218 10^3/uL (150-450); RED BLOOD COUNT 5.43 10^6/uL (4.00-5.40); WHITE BLOOD COUNT 6.7 10^3/uL (4.0-10.0)
[2023-12-10 15:19] LABS: ALBUMIN 3.5 G/DL (3.2-5.2); ALKALINE PHOSPHATASE 74 U/L (46-116); ALT/SGPT 39 U/L (7.0-40); AST/SGOT 28 U/L (<34); BILIRUBIN,TOTAL 0.7 MG/DL (0.3-1.2); BLOOD UREA NITROGEN 13 MG/DL (9-23); CARBON DIOXIDE LEVEL 29 MMOL/L (20-31); CHLORIDE LEVEL 106 MMOL/L (98-107); CHOLESTEROL LEVEL 153 MG/DL (<200); CHOLESTEROL RISK RATIO 2.63 (<5); CREATININE FOR GFR 0.65 MG/DL (0.55-1.30); GLOMERULAR FILTRATION RATE > 60.0 (>51); GLUCOSE, FASTING 80 MG/DL (60-100); HDL CHOLESTEROL 58.1 MG/DL (>40); LDL CHOLESTEROL 76.9 MG/DL (<100); NON-HDL-C 94.9 MG/DL; POTASSIUM SERUM 4.7 MMOL/L (3.5-5.1); SODIUM LEVEL 141 MMOL/L (136-145); TOTAL PROTEIN 6.5 G/DL (5.7-8.2); TRIGLYCERIDES LEVEL 90 MG/DL (<150)
[2023-12-10 15:20] LABS: TOTAL 25(OH) VITAMIN D 25.2 NG/ML (20.0-100.0)
== END ==
LOC: M SFHCADAM 10:30
PROVIDERS: ATTEND Physician Assistant Medical
DX: E03.9 Hypothyroidism, unspecified (principal); E78.2 Mixed hyperlipidemia; E66.01 Morbid (severe) obesity due to excess calories; F32.0 Major depressive disorder, single episode, mild

== ENCOUNTER → 2023-12-10 | Outpatient (CLI) | payer OTHER | LOC: M ADAMS 10:58 | PROVIDERS: ATTEND Physician Assistant Medical | DX: M47.812 Spondylosis without myelopathy or radiculopathy, cervical region (principal); M47.816 Spondylosis without myelopathy or radiculopathy, lumbar region; M46.96 Unspecified inflammatory spondylopathy, lumbar region; M25.511 Pain in right shoulder; M54.2 Cervicalgia; M54.50 Low back pain, unspecified; M25.552 Pain in left hip ==

== ENCOUNTER → 2024-01-05 | Outpatient (CLI) | payer OTHER | LOC: M CARPUL 09:04 | PROVIDERS: ATTEND Physician Assistant Medical | DX: R60.1 Generalized edema (principal) ==

== ENCOUNTER → 2024-04-05 | Outpatient (REF) | payer OTHER | LOC: M SFHCDERM 22:17 → M LAB REF 22:17 | PROVIDERS: ATTEND Physician Assistant | DX: L91.8 Other hypertrophic disorders of the skin (principal); L85.8 Other specified epidermal thickening; L57.8 Other skin changes due to chronic exposure to nonionizing radiation ==

== ENCOUNTER → 2024-07-22 | Outpatient (CLI) | payer OTHER | LOC: M RAD 08:08 | PROVIDERS: ATTEND Physician Assistant Medical | DX: K75.81 Nonalcoholic steatohepatitis (NASH) (principal) ==

== ENCOUNTER 2024-11-06 01:04 | Emergency (ER) | payer OTHER ==
[~2024-11-06] VITALS: Ht 157.5 cm; Wt 129.5 kg
[2024-11-06 01:41] LABS: KETONE, URINE AUTO RFX NEGATIVE (NEGATIVE); LEUKOCYTE ESTERASE UR AUTO RFX NEGATIVE (NEGATIVE); NITRITE, URINE AUTO RFX NEGATIVE (NEGATIVE); RBC, URINE AUTO RFX 0 /HPF (0-3); SQUAM EPITHELIAL CELL UR AURFX 0 /HPF (0-6); WBC, URINE AUTO RFX 0 /HPF (0-3)
[2024-11-06] MEDS: ONDANSETRON 4MG 2ML VIAL IV ONE (03:35)
[2024-11-06] MEDS: KETOROLAC 30 MG/ML 1ML VIAL IV ONE (03:53)
[2024-11-06] MEDS: NS (Normal Saline) 0.9% 1,000 ML IV ONE (03:54)
[2024-11-06 04:07] LABS: BASO # 0.1 10^3/uL (0.0-0.2); BASO % 0.6 % (0.0-1.0); EOS # 0.2 10^3/uL (0.0-0.5); EOS % 2.6 % (0.0-3.0); HEMATOCRIT 48.2 % (36.0-47.0); HEMOGLOBIN 16.6 g/dl (12.0-15.5); LYMPH % 34.1 % (24.0-44.0); MEAN CORPUSCULAR HEMOGLOBIN 30.1 pg (27.0-33.0); MEAN CORPUSCULAR HGB CONC 34.4 g/dl (32.0-36.5); MEAN CORPUSCULAR VOLUME 87.3 fl (80.0-96.0); MONO # 0.6 10^3/uL (0.0-0.8); MONO % 6.5 % (2.0-8.0); NEUTROPHILS # 4.9 10^3/uL (1.5-8.5); PLATELET COUNT, AUTOMATED 221 10^3/uL (150-450); RED BLOOD COUNT 5.52 10^6/uL (4.00-5.40); WHITE BLOOD COUNT 8.7 10^3/uL (4.0-10.0)
[2024-11-06 04:29] LABS: ALBUMIN 3.8 G/DL (3.2-5.2); BILIRUBIN,DIRECT 0.2 MG/DL (<0.4); BILIRUBIN,TOTAL 0.7 MG/DL (0.3-1.2); CALCIUM LEVEL 8.5 MG/DL (8.5-10.1); CREATININE FOR GFR 0.85 MG/DL (0.55-1.30); GLOMERULAR FILTRATION RATE 79.4 (>51); POTASSIUM SERUM 4.1 MMOL/L (3.5-5.1); TOTAL PROTEIN 7.2 G/DL (5.7-8.2)
[2024-11-06] MEDS ORDERED: ISOVUE-370 76% 100ML VIAL As Ordered ONE (05:08)
[2024-11-06 05:09] LABS: THYROID STIMULATING HORMONE 6.491 uIU/ML (0.55-4.78)
[2024-11-06] MEDS: FAMOTIDINE 20MG/2ML VIAL IVP ONE (06:56)
[2024-11-06] MEDS: diphenhydrAMINE 50MG/ML VIAL IV STA (06:56)
[2024-11-06 09:06] VITALS: BP 142/69; TEMP 97.2; O2SAT 97
== END 2024-11-06 09:18 | disposition home or self-care (01) ==
LOC: M ED 01:04
DX: R10.9 Unspecified abdominal pain (principal); E07.9 Disorder of thyroid, unspecified; N28.1 Cyst of kidney, acquired; R16.2 Hepatomegaly with splenomegaly, not elsewhere classified; K76.0 Fatty (change of) liver, not elsewhere classified; Z88.0 Allergy status to penicillin; Z88.1 Allergy status to other antibiotic agents; Z88.2 Allergy status to sulfonamides; Z88.5 Allergy status to narcotic agent; Z91.040 Latex allergy status; Z79.899 Other long term (current) drug therapy
CPT/HCPCS: 74177; 80048; 80076; 81001; 84443; 85025; 87486; 87581; 87633; 87798; 96361; 96374; 96375; 99284; J1200; J1308; J1885; J2405; Q9967

== ENCOUNTER → 2024-11-29 | Outpatient (REF) | payer OTHER ==
[2024-11-29 13:05] LABS: BASO # 0.1 10^3/uL (0.0-0.2); BASO % 0.7 % (0.0-1.0); EOS # 0.2 10^3/uL (0.0-0.5); HEMOGLOBIN 15.9 g/dl (12.0-15.5); LYMPH # 2.7 10^3/uL (1.5-5.0); MEAN CORPUSCULAR HEMOGLOBIN 30.5 pg (27.0-33.0); MEAN CORPUSCULAR HGB CONC 33.1 g/dl (32.0-36.5); MEAN CORPUSCULAR VOLUME 92.1 fl (80.0-96.0); MONO # 0.5 10^3/uL (0.0-0.8); MONO % 7.3 % (2.0-8.0); NEUTROPHILS # 3.5 10^3/uL (1.5-8.5); NEUTROPHILS % 49.7 % (36.0-66.0); PLATELET COUNT, AUTOMATED 205 10^3/uL (150-450); RED BLOOD COUNT 5.21 10^6/uL (4.00-5.40)
[2024-11-29 13:18] LABS: INR 0.98; PROTHROMBIN TIME 13.2 SECONDS (12.5-14.5)
[2024-11-29 13:36] LABS: ALBUMIN 3.6 G/DL (3.2-5.2); BILIRUBIN,TOTAL 0.7 MG/DL (0.3-1.2); CALCIUM LEVEL 8.6 MG/DL (8.5-10.1); CHOLESTEROL RISK RATIO 2.83 (<5); CREATININE FOR GFR 0.85 MG/DL (0.55-1.30); GLOMERULAR FILTRATION RATE 79.4 (>51); HDL CHOLESTEROL 58.6 MG/DL (>40); NON-HDL-C 107.4 MG/DL; POTASSIUM SERUM 4.9 MMOL/L (3.5-5.1); TOTAL PROTEIN 6.6 G/DL (5.7-8.2)
[2024-11-29 13:38] LABS: TOTAL 25(OH) VITAMIN D 35.9 NG/ML (20.0-100.0)
== END ==
LOC: M SFHCADAM 09:01
PROVIDERS: ATTEND Physician Assistant Medical
DX: K75.81 Nonalcoholic steatohepatitis (NASH) (principal); E03.9 Hypothyroidism, unspecified; E78.2 Mixed hyperlipidemia; E66.01 Morbid (severe) obesity due to excess calories; F32.0 Major depressive disorder, single episode, mild

== ENCOUNTER → 2024-12-08 | Outpatient (REF) | payer OTHER ==
[2024-12-08 13:48] LABS: FOLLICLE STIMULATING HORMONE 23.9 mIU/ML
[2024-12-08 13:49] LABS: PROGESTERONE 0.37 NG/ML
[2024-12-08 13:50] LABS: LUTEINIZING HORMONE 14.9 mIU/ML
[2024-12-08 13:51] LABS: ESTRADIOL 49.9 PG/ML
== END ==
LOC: M LABDRWAD 12:48
PROVIDERS: ATTEND Physician Assistant
DX: N95.1 Menopausal and female climacteric states (principal)

== ENCOUNTER → 2025-02-20 | Outpatient (CLI) | payer OTHER | LOC: M RAD 08:18 | PROVIDERS: ATTEND Physician Assistant Medical | DX: K75.81 Nonalcoholic steatohepatitis (NASH) (principal); N28.1 Cyst of kidney, acquired ==

== ENCOUNTER → 2025-06-16 | Outpatient (REF) | payer OTHER | LOC: M SFHCADAM 14:27 | PROVIDERS: ATTEND Physician Assistant Medical | DX: M10.072 Idiopathic gout, left ankle and foot (principal) ==